=== PATIENT | male | born 1990 | race Asian ===

== ENCOUNTER 2020-04-23 17:32 | Emergency (ER) | payer OTHER ==
[~2020-04-23] VITALS: Ht 188 cm; Wt 95.5 kg
[2020-04-23] MEDS ORDERED: PANTOPRAZOLE 40MG TAB (PROTONIX) PO ONE (18:25)
[2020-04-23] MEDS ORDERED: GI COCKTAIL 50ML BTL(HYOSCYAMINE/MAALOX/LIDOCAINE VISCOUS)(1:3:1) PO ONE (18:25)
[2020-04-23] MEDS ORDERED: SUCRALFATE 1 GM TAB PO ONE (18:25)
--- NOTE | 2020-04-23 18:53 | REP ---
INDICATION: LUQ abd pain, postprandial nausea bloating. COMPARISON: None. TECHNIQUE: Supine and erect views of the abdomen, PA view chest. FINDINGS: There is no evidence of free intraperitoneal air, ileus or obstruction. No dilated bowel loops are seen. There is a possible punctate renal calculus in the lower pole of the left kidney. There is no acute infiltrate in either lung. The heart mediastinum are within normal limits. IMPRESSION: No free air or obstruction. Suspect punctate calculus lower pole left kidney. <Electronically signed by Josh Lopez > 04/23/20 1876
[2020-04-23 18:59] LABS: BASO % 0.7 % (0.0-1.0); EOS # 0.3 10^3/uL (0.0-0.5); EOS % 4.3 % (0.0-3.0); HEMATOCRIT 43.4 % (42.0-52.0); HEMOGLOBIN 14.2 g/dl (13.5-17.5); LYMPH # 2.8 10^3/uL (1.5-5.0); LYMPH % 45.8 % (24.0-44.0); MEAN CORPUSCULAR HEMOGLOBIN 28.5 pg (27.0-33.0); MEAN CORPUSCULAR HGB CONC 32.7 g/dl (32.0-36.5); MEAN CORPUSCULAR VOLUME 87.1 fl (80.0-96.0); MONO # 0.5 10^3/uL (0.0-0.8); MONO % 8.5 % (2.0-8.0); NEUTROPHILS # 2.4 10^3/uL (1.5-8.5); NEUTROPHILS % 40.5 % (36.0-66.0); PLATELET COUNT, AUTOMATED 271 10^3/uL (150-450); RED BLOOD COUNT 4.98 10^6/uL (4.30-6.10)
[2020-04-23 19:22] LABS: BILIRUBIN,DIRECT 0.2 MG/DL (0.0-0.2); BILIRUBIN,TOTAL 0.5 MG/DL (0.2-1.0); TOTAL PROTEIN 7.2 GM/DL (6.4-8.2)
[2020-04-23] MEDS ORDERED: OMEP-218 PO (19:59)
[2020-04-23] MEDS ORDERED: CARA1TAB6 PO (19:59)
[2020-04-23] MEDS ORDERED: ONDA4TAB6 PO (20:05)
[2020-04-23 20:18] VITALS: BP 146/89
== END 2020-04-23 20:20 | disposition home or self-care (01) ==
LOC: M ED 17:32
DX: R10.32 Left lower quadrant pain (principal); R14.0 Abdominal distension (gaseous); R11.0 Nausea; G89.18 Other acute postprocedural pain; Z79.899 Other long term (current) drug therapy

== ENCOUNTER 2020-10-19 11:27 | Emergency (ER) | payer OTHER ==
[~2020-10-19] VITALS: Ht 188 cm; Wt 97.4 kg
[2020-10-19 11:27] VITALS: BP 156/86
[~2020-10-19 11:27] MED LIST: CARA1TAB6 PO; OMEP-218 PO; ONDA4TAB6 PO
== END 2020-10-19 13:16 | disposition left against medical advice (07) ==
LOC: M ED 11:27
DX: Z53.21 Procedure and treatment not carried out due to patient leaving prior to being seen by health care provider (principal)

== ENCOUNTER 2022-12-18 15:47 | Emergency (ER) | payer OTHER ==
[~2022-12-18] VITALS: Ht 188 cm; Wt 100.9 kg
[~2022-12-18 15:47] MED LIST changes: +OMEP-173 PO; -OMEP-218 PO
[2022-12-18 15:49] VITALS: TEMP 98.7
[2022-12-18 17:49] LABS: RSV AMPLIFICATION NEGATIVE (NEGATIVE)
[2022-12-18] MEDS ORDERED: ALBU6.7H6 INH (18:46)
[2022-12-18] MEDS ORDERED: BENZ200C70 PO (18:46)
[2022-12-18 18:55] VITALS: BP 135/85; O2SAT 99
== END 2022-12-18 18:57 | disposition home or self-care (01) ==
LOC: M ED 15:47
DX: J20.9 Acute bronchitis, unspecified (principal); Z79.52 Long term (current) use of systemic steroids; Z79.811 Long term (current) use of aromatase inhibitors

== ENCOUNTER 2023-01-11 11:13 | Emergency (ER) | payer OTHER ==
[~2023-01-11] VITALS: Ht 188 cm; Wt 101.5 kg
[~2023-01-11 11:13] MED LIST changes: +ALBU6.7H6 INH; +BENZ200C70 PO
[2023-01-11] MEDS ORDERED: IPRATROPIUM 0.5MG/ALBUTEROL 2.5MG INH SOL UD 3ML (DUONEB) NEB ONE (12:25)
[2023-01-11] MEDS ORDERED: methylPREDNISolone 125MG 2ML VIAL IV ONE (12:25)
[2023-01-11 12:38] VITALS: O2SAT 100
[2023-01-11 12:46] LABS: BASO % 0.6 % (0.0-1.0); EOS # 0.3 10^3/uL (0.0-0.5); EOS % 4.2 % (0.0-3.0); HEMATOCRIT 43.2 % (42.0-52.0); HEMOGLOBIN 14.3 g/dl (13.5-17.5); LYMPH # 2.8 10^3/uL (1.5-5.0); LYMPH % 44.3 % (24.0-44.0); MEAN CORPUSCULAR HEMOGLOBIN 29.5 pg (27.0-33.0); MEAN CORPUSCULAR HGB CONC 33.1 g/dl (32.0-36.5); MEAN CORPUSCULAR VOLUME 89.1 fl (80.0-96.0); MONO # 0.5 10^3/uL (0.0-0.8); MONO % 8.3 % (2.0-8.0); NEUTROPHILS # 2.7 10^3/uL (1.5-8.5); NEUTROPHILS % 42.4 % (36.0-66.0); PLATELET COUNT, AUTOMATED 227 10^3/uL (150-450); RED BLOOD COUNT 4.85 10^6/uL (4.30-6.10); WHITE BLOOD COUNT 6.4 10^3/uL (4.0-10.0)
[2023-01-11 13:00] LABS: INR 1.08; PROTHROMBIN TIME 13.7 SECONDS (12.5-14.5)
[2023-01-11 13:01] LABS: PARTIAL THROMBOPLASTIN TIME 27.3 SECONDS (24.8-34.2)
[2023-01-11 13:08] LABS: CK-MB VALUE MASS < 1.0 NG/ML (<3.6); LIPASE 170 U/L (12-53)
[2023-01-11 13:10] LABS: ALKALINE PHOSPHATASE 52 U/L (46-116); ALT/SGPT 23 U/L (7.0-40); AST/SGOT 19 U/L (<34); BILIRUBIN,DIRECT 0.4 MG/DL (<0.4); BILIRUBIN,TOTAL 1.5 MG/DL (0.3-1.2); BLOOD UREA NITROGEN 13 MG/DL (9-23); CARBON DIOXIDE LEVEL 29 MMOL/L (20-31); CHLORIDE LEVEL 107 MMOL/L (98-107); CPK CREATINE PHOSPHOKINASE 186 U/L (46-171); CREATININE FOR GFR 0.98 MG/DL (0.70-1.30); GLOMERULAR FILTRATION RATE > 60.0 (>60); GLUCOSE, FASTING 83 MG/DL (60-100); MAGNESIUM LEVEL 2.1 MG/DL (1.8-2.4); MB/CK RELATIVE INDEX 0.53 (< OR =4); POTASSIUM SERUM 4.3 MMOL/L (3.5-5.1); SODIUM LEVEL 142 MMOL/L (136-145)
[2023-01-11 13:12] LABS: THYROID STIMULATING HORMONE 0.753 uIU/ML (0.55-4.78)
[2023-01-11 13:40] LABS: D-DIMER QUANT 0.27 ug/mL (<0.5)
[2023-01-11] MEDS ORDERED: ISOVUE-370 76% 100ML VIAL As Ordered ONE (14:20)
[2023-01-11] MEDS ORDERED: PRED20TA PO (15:34)
[2023-01-11 16:19] VITALS: BP 128/80; TEMP 98.2; O2SAT 99
== END 2023-01-11 16:23 | disposition home or self-care (01) ==
LOC: M ED 11:13
DX: R06.02 Shortness of breath (principal); R00.1 Bradycardia, unspecified
CPT/HCPCS: 71046; 71275; 74177; 80048; 80076; 82550; 82553; 83690; 83735; 84443; 84484; 85025; 85379; 85610; 85730; 87486; 87581; 87633; 87798; 93005; 94640; 96374; 99284; J2930; Q9967